=== PATIENT | female | born 1955 | race Two or more races ===

== ENCOUNTER 2017-09-17 13:07 | Outpatient (CLI) | payer OTHER ==
[~2017-09-17 13:07] MED LIST: DICLOFENAC SODI50 MG PO; MEDROLPACK PO; ORPH100T PO; PARAFON FORTE500 MG PO
== END 2017-09-17 13:16 | disposition home or self-care (01) ==
LOC: RAD 13:07
DX: M54.5 Low back pain (principal); M54.2 Cervicalgia

== ENCOUNTER 2017-10-20 09:06 | Outpatient (CLI) | payer OTHER | END 2017-10-20 09:18 | disposition home or self-care (01) | LOC: MRI 09:06 | DX: M54.5 Low back pain (principal); M54.11 Radiculopathy, occipito-atlanto-axial region | CPT/HCPCS: 72148 ==

== ENCOUNTER → 2019-06-17 15:51 | Outpatient (CLI) | payer OTHER | END | disposition home or self-care (01) | LOC: LAB 15:51 | DX: H90.3 Sensorineural hearing loss, bilateral (principal) ==

== ENCOUNTER 2019-12-14 13:38 | Outpatient (CLI) | payer OTHER ==
[~2019-12-14] VITALS: Ht 162.6 cm; Wt 83.9 kg
== END 2019-12-14 18:45 | disposition home or self-care (01) ==
LOC: OFIC 805 13:38
PROVIDERS: ATTEND Otolaryngology
DX: R09.81 Nasal congestion (principal); R09.82 Postnasal drip; J32.8 Other chronic sinusitis

== ENCOUNTER → 2020-03-03 07:34 | Outpatient (CLI) | payer OTHER | END | disposition home or self-care (01) | LOC: LAB 07:34 | DX: Z03.818 Encounter for observation for suspected exposure to other biological agents ruled out (principal); E66.8 Other obesity; Z12.11 Encounter for screening for malignant neoplasm of colon; R03.0 Elevated blood-pressure reading, without diagnosis of hypertension ==

== ENCOUNTER 2020-05-22 09:04 | Outpatient (CLI) | payer OTHER | END 2020-05-22 09:16 | disposition home or self-care (01) | LOC: RAD 09:04 | PROVIDERS: ATTEND Specialist | DX: R92.0 Mammographic microcalcification found on diagnostic imaging of breast (principal); J45.998 Other asthma; Z12.31 Encounter for screening mammogram for malignant neoplasm of breast ==

== ENCOUNTER 2020-06-27 07:52 | Outpatient (CLI) | payer OTHER | END 2020-06-27 07:55 | disposition home or self-care (01) | LOC: LAB 07:52 | PROVIDERS: ATTEND Specialist | DX: E11.21 Type 2 diabetes mellitus with diabetic nephropathy (principal); E78.2 Mixed hyperlipidemia; Z12.11 Encounter for screening for malignant neoplasm of colon ==

== ENCOUNTER → 2020-08-22 08:06 | Outpatient (CLI) | payer OTHER | END | disposition home or self-care (01) | LOC: LAB 08:06 | PROVIDERS: ATTEND Specialist | DX: M32.8 Other forms of systemic lupus erythematosus (principal) ==

== ENCOUNTER 2020-10-03 10:22 | Outpatient (CLI) | payer OTHER | END 2020-10-03 10:30 | disposition home or self-care (01) | LOC: NUCLEAR 10:22 | PROVIDERS: ATTEND Specialist | DX: I82.409 Acute embolism and thrombosis of unspecified deep veins of unspecified lower extremity (principal) ==

== ENCOUNTER 2020-10-18 09:15 | Day surgery (SDC) | payer OTHER | END 2020-10-18 14:40 | disposition home or self-care (01) | LOC: AMB-ENDOS 09:15 | PROVIDERS: ATTEND Colon & Rectal Surgery | DX: K62.89 Other specified diseases of anus and rectum (principal); K64.8 Other hemorrhoids; Z12.11 Encounter for screening for malignant neoplasm of colon ==

== ENCOUNTER 2021-10-11 08:32 | Outpatient (CLI) | payer OTHER | END 2021-10-11 08:33 | disposition home or self-care (01) | LOC: LAB 08:32 | PROVIDERS: ATTEND Internal Medicine | DX: M54.2 Cervicalgia (principal); N18.2 Chronic kidney disease, stage 2 (mild) ==

== ENCOUNTER 2021-10-11 10:25 | Outpatient (CLI) | payer OTHER | END 2021-10-11 10:27 | disposition home or self-care (01) | LOC: RAD 10:25 | PROVIDERS: ATTEND Internal Medicine | DX: N18.2 Chronic kidney disease, stage 2 (mild) (principal) ==

== ENCOUNTER → 2021-10-31 07:46 | Outpatient (CLI) | payer OTHER | END | disposition home or self-care (01) | LOC: NUCLEAR 07:30 | PROVIDERS: ATTEND Internal Medicine | DX: I87.2 Venous insufficiency (chronic) (peripheral) (principal); Z88.2 Allergy status to sulfonamides; Z88.8 Allergy status to other drugs, medicaments and biological substances ==

== ENCOUNTER → 2021-10-31 | Outpatient (CLI) | payer OTHER | END | disposition home or self-care (01) | LOC: MRI 08:59 | PROVIDERS: ATTEND Internal Medicine | DX: M54.2 Cervicalgia (principal) | CPT/HCPCS: 72141 ==

== ENCOUNTER 2022-09-18 08:44 | Outpatient (CLI) | payer OTHER | END 2022-09-18 08:48 | disposition home or self-care (01) | LOC: MAMO-SONO 08:44 | PROVIDERS: ATTEND Internal Medicine | DX: N64.4 Mastodynia (principal); N60.11 Diffuse cystic mastopathy of right breast; Z12.31 Encounter for screening mammogram for malignant neoplasm of breast ==

== ENCOUNTER → 2023-01-20 07:00 | Outpatient (CLI) | payer OTHER ==
[2023-01-20 07:20] LABS: HEMATOCRIT 38.9 % (36.0-45.00); HEMOGLOBIN 13.2 g/dL (12.0-15.00); MEAN CELL VOLUME 84.8 fL (80.00-100.00); MEAN CORPUSCULAR HEMOGLOBIN 28.9 pg (27.00-32.0); PH,URINE 5.5 (5.0-8.0); PLATELET COUNT 299 K/uL (150-450); RED BLOOD COUNT 4.59 M/uL (4.00-6.00); RED CELL DISTRIBUTION WIDTH 14.2 % (11.5-14.5); URINE APPEARANCE Turbid; URINE BILIRRUBIN Negative (NEGATIVE); URINE BLOOD Negative; URINE COLOR Yellow; URINE GLUCOSE Negative (NEGATIVE); URINE LEUKOCYTE Moderate; URINE NITRATE Negative; URINE PROTEIN Trace (NEGATIVE)
[2023-01-20 07:23] LABS: URINE RBC 14.5 uL (0.0-20.8); URINE WBC 390.3 uL (0.0-23.2)
[2023-01-20 07:25] LABS: URINE BACTERIA > 9821.5 uL (0.0-1933); URINE EPITHELIAL CELLS > 201.7 uL (0.0-38.8)
[2023-01-20 08:15] LABS: ALBUMIN 3.6 gm/dL (3.4-5.0); BILIRUBIN TOTAL 0.45 mg/dL (0.3-1.2); CHOL HDL RATIO 2.7 (0-5.0); CREATININE SERUM 0.96 mg/dL (0.55-1.02); GFR 57.8; GLOBULINA 3.4 G/DL (2.4-3.5); POTASSIUM 4.42 mEq/L (3.5-5.1); TSH 1.86 uIU/mL (0.358-3.74)
== END | disposition home or self-care (01) ==
LOC: LAB 07:00
PROVIDERS: ATTEND Internal Medicine
DX: E11.9 Type 2 diabetes mellitus without complications (principal); E78.00 Pure hypercholesterolemia, unspecified; N39.0 Urinary tract infection, site not specified; E03.8 Other specified hypothyroidism; D64.9 Anemia, unspecified

== ENCOUNTER 2023-07-10 07:21 | Emergency (ER) | payer OTHER ==
[~2023-07-10] VITALS: Ht 157.5 cm; Wt 83.0 kg
[2023-07-10] MEDS ORDERED: GRALISE600 MG (07:45)
[2023-07-10] MEDS ORDERED: GABAPENTIN300 M2 PO (07:45)
[2023-07-10] MEDS ORDERED: LYVISPAH5 MG PO (07:46)
[2023-07-10] MEDS ORDERED: NABUMETONE750 MG PO (07:47)
[2023-07-10] MEDS ORDERED: DEXAMETHASONE SODIUM PHOSPHATE 4 MG/ML VIAL IM STA (08:38)
[2023-07-10] MEDS ORDERED: KETOROLAC TROMETHAMINE 60 MG VIAL IM STA (08:39)
[2023-07-10] MEDS ORDERED: DICLOFENAC POTA50 MG PO (10:41)
[2023-07-10] MEDS ORDERED: MEDROLPACK PO (10:41)
[2023-07-10] MEDS ORDERED: NORFLEX100MG PO (10:41)
== END 2023-07-10 11:04 | disposition home or self-care (01) ==
LOC: ER 07:22
DX: M54.2 Cervicalgia (principal); M54.59 Other low back pain; V43.62XA Car passenger injured in collision with other type car in traffic accident, initial encounter; Y93.89 Activity, other specified; Y92.413 State road as the place of occurrence of the external cause; Z88.2 Allergy status to sulfonamides; Z88.8 Allergy status to other drugs, medicaments and biological substances

== ENCOUNTER 2023-12-30 11:26 | Outpatient (CLI) | payer OTHER ==
[~2023-12-30 11:26] MED LIST changes: +DICLOFENAC POTA50 MG PO; +GABAPENTIN300 M2 PO; +GRALISE600 MG; +LYVISPAH5 MG PO; +NABUMETONE750 MG PO; +NORFLEX100MG PO
== END 2023-12-30 11:29 | disposition home or self-care (01) ==
LOC: SONOGRAMA 11:26
PROVIDERS: ATTEND Internal Medicine
DX: E04.2 Nontoxic multinodular goiter (principal); N18.31 Chronic kidney disease, stage 3a

== ENCOUNTER 2024-01-05 11:47 | Outpatient (CLI) | payer OTHER | END 2024-01-05 11:51 | disposition home or self-care (01) | LOC: SONOGRAMA 11:47 | PROVIDERS: ATTEND Pathology Anatomic Pathology & Clinical Pathology | DX: D34 Benign neoplasm of thyroid gland (principal); E07.89 Other specified disorders of thyroid; E04.2 Nontoxic multinodular goiter ==

== ENCOUNTER 2024-04-20 08:45 | Outpatient (CLI) | payer OTHER | END 2024-04-20 08:52 | disposition home or self-care (01) | LOC: MAMO-SONO 08:45 | PROVIDERS: ATTEND Internal Medicine | DX: N64.4 Mastodynia (principal); R92.8 Other abnormal and inconclusive findings on diagnostic imaging of breast ==

== ENCOUNTER 2024-11-30 07:37 | Outpatient (CLI) | payer OTHER | END 2024-11-30 07:40 | disposition home or self-care (01) | LOC: NUCLEAR 07:37 | PROVIDERS: ATTEND Internal Medicine | DX: I87.2 Venous insufficiency (chronic) (peripheral) (principal) ==